=== PATIENT | female | born 1995 | race African-American/Black ===

== ENCOUNTER 2017-02-26 13:19 | Emergency (ER) | payer OTHER ==
[~2017-02-26] VITALS: Ht 157.5 cm; Wt 43.1 kg
--- NOTE | 2017-02-26 15:07 | ED GI/GU/ABDOMINAL COMPLAINT ---
History of Present Illness General Chief Complaint: General Adult Stated Complaint: NEEDS KING INSERTED Source: patient Exam Limitations: no limitations Vital Signs & Intake/Output Vital Signs & Intake/Output Vital Signs Date Time Temp Pulse Resp B/P B/P Pulse O2 O2 Flow FiO2 Mean Ox Delivery Rate 02/26 1418 Room Air Room Air 02/26 1332 99.3 74 18 124/74 99 Room Air Allergies Coded Allergies: ciprofloxacin (Mild, PER PT, DEVELOPED A FEVER, CANNOT TAKE CIPRO 02/26/17) linezolid (UNKNOWN 02/26/17) sulfamethoxazole (From BACTRIM) (UNKNOWN 02/26/17) trimethoprim (From BACTRIM) (UNKNOWN 02/26/17) Reconcile Medications Cephalexin (Keflex) 500 MG CAPSULE 1 CAP PO TID UTI Sulfamethoxazole/Trimethoprim (Bactrim Ds Tablet) 800 MG-160 MG TABLET 1 TAB PO BID UTI Triage Note: PT FRANCISCOA FROM [facility] FOR KING PLACEMENT, HX OF PARALYSIS, C5 FRACTURE IN JULY 2016. PT STATING STAFF ATTEMPTED TO PLACE KING IN FACILITY "BUT IT HURT TOO MUCH AND THEY JUST DON'T SEEM LIKE THEY KNOW WHAT THEY ARE DOING" PT STATING SHE CAN OCCASIONALLY FEEL BLADDER PRESSURE BUT NOT CONSISTENTLY. Triage Nurses Notes Reviewed? yes LMP (ages 10-50): unknown ? n Is pt currently ? No Onset: Abrupt Duration: day(s): (1), constant, continues in ED, getting worse Timing: recent history Quality/Severity: burning, fullness Severity Numbers: 7 Location: suprapubic Radiation: no radiation Prior Abdominal Problems: similar symptoms Past Sexual History: Unobtainable at this time No Modifying Factors: none Modifying Factors: Worsens With: palpation, urinating. Associated Symptoms: abdominal pain, dysuria HPI: 21-year-old female past medical history of paraplegia secondary to cervical spine fracture in July 2016 brought in by a bolus from extended care facility for placement of a King catheter. Patient was recently transferred to a new extended care facility that does not straight cath. Patient previously was getting straight cath several times per day. The staff at this new facility is unable to do this and is requesting that a King placed. Patient also states that she think she may have a urine infection. She reports burning in the area of her urethra and superpubic pressure. She has had recurrent UTIs in the past and feels like this is similar. No fever or back pain or abdominal pain.no other associated symptoms. She is not taking any medicine for this. No vaginal discharge or bleeding. (Chevy Jorge) Past History Travel History Traveled to [place] past 21 day No Medical History Any Pertinent Medical History? see below for history Neurological: POLYNEUROPATHY EENT: NONE Cardiovascular: NONE Respiratory: NONE Gastrointestinal: NONE Hepatic: NONE Renal: neurogenic bladder, urinary incontinence Musculoskeletal: fracture, PARAPLEGIA FRACTURE OF CERVICAL SPIN Psychiatric: NONE Endocrine: NONE Blood Disorders: NONE Cancer(s): NONE WEAVING MACHINE OPERATOR/Reproductive: NONE Surgical History Surgical History: none Psychosocial History What is your primary language Azerbaijani Tobacco Use: Never used ETOH Use: denies use Illicit Drug Use: denies illicit drug use Family History Hx Contributory? No (Chevy Jorge) Review of Systems Review of Systems Constitutional: Reports: no symptoms. EENTM: Reports: no symptoms. Respiratory: Reports: no symptoms. Cardiovascular: Reports: no symptoms. GI: Reports: no symptoms. Genitourinary: Reports: see HPI, dysuria, pain. Musculoskeletal: Reports: no symptoms. Skin: Reports: no symptoms. Neurological/Psychological: Reports: no symptoms. Hematologic/Endocrine: Reports: no symptoms. Immunologic/Allergic: Reports: no symptoms. All Other Systems: Reviewed and Negative (Chevy Jorge) Physical Exam Physical Exam General Appearance: well developed/nourished, no apparent distress, alert, awake Head: atraumatic, normal appearance Eyes: Bilateral: normal appearance, PERRL, EOMI. Ears, Nose, Throat, Mouth: hearing grossly normal, moist mucous membrane Neck: normal inspection, supple Respiratory: normal breath sounds, chest non-tender, no respiratory distress, lungs clear Cardiovascular: regular rate/rhythm, normal peripheral pulses Peripheral Pulses: 2+ radial (R), 2+ radial (L) Gastrointestinal: normal bowel sounds, soft, no organomegaly, tenderness (mild suprapubic) Back: normal inspection, normal range of motion, no CVA tenderness Extremities: patient is moving bilateral upper extremities equally. Lower extremities are paralyzed bilaterally Neurologic/Psych: awake, alert, oriented x 3, paraplegic at baseline Skin: intact, normal color, warm/dry Core Measures ACS in differential dx? No Sepsis Present: No Sepsis Focused Exam Completed? No (Chevy Jorge) Progress Differential Diagnosis: UTI/pyelo, urethritis, urinary retention, kidney stone, vulvovaginitis Plan of Care: Orders Procedure Date/time Status King, Insertion/Removal/Asses 02/26 1354 Active CULTURE,URINE 02/26 1354 Active URINALYSIS 02/26 1354 Complete Current Medications Sig/Gal Start time Last Medication Dose Stop Time Status Admin Cephalexin 500 MG ONCE ONE 02/26 1530 UNVr (Keflex) 02/26 1531 Trimethoprim/ 1 TAB ONCE ONE 02/26 1515 CAN Sulfamethoxazole 02/26 1516 (Bactrim DS) Laboratory Tests 02/26/17 1411: Urine Color YEL, Urine Clarity CLDY H, Urine pH 8.0, Ur Specific [place] 1.020, Urine Protein 100 H, Urine Ketones NEG, Urine Nitrite POS H, Urine Bilirubin NEG, Urine Urobilinogen 0.2, Ur Leukocyte Esterase LARGE H, Ur Microscopic SEDIMENT EXAMINED, Urine RBC 5-10 H, Urine WBC > 75 H, Ur Epithelial Cells RARE, Urine Crystals 1+ CA OX H, Urine Bacteria PACKD H, Urine Mucus RARE, Urine Hemoglobin TRACE-INTACT, Urine Glucose NEG Microbiology 02/26 1411 URINE ROUT: Urine Culture - RECD Patient seen and evaluated. She is afebrile nontoxic-appearing. Her abdomen is soft. No CVA tenderness. Bladder scan showed greater than 250 mL of urine in the bladder. A King catheter was placed patient reports feeling much better. Urine is showing signs of infection. She'll be treated with cephalexin. Advised her to follow-up with a urologist as soon as possible. Rest and plenty of fluids discussed return precautions in detail patient is nontoxic-appearing and agrees the plan. Initial ED EKG: none (Moustapha ROSS,Chevy) Departure Departure Disposition: HOME OR SELF CARE Condition: Stable Clinical Impression Primary Impression: Retention, urine Secondary Impressions: UTI (urinary tract infection) Qualifiers: Urinary tract infection type: acute cystitis Hematuria presence: without hematuria Qualified Code: N30.00 - Acute cystitis without hematuria Referrals: José Miguel HAMILTON,Karl Woodward (PCP/Family) Additional Instructions: Take antibiotics as directed for the full course. Follow-up with your urologist as soon as possible. Monitor symptoms return with any concerns. Departure Forms: Customer Survey General Discharge Information Prescriptions: Current Visit Scripts Sulfamethoxazole/Trimethoprim (Bactrim Ds Tablet) 1 TAB PO BID #20 TAB Cephalexin (Keflex) 1 CAP PO TID #30 CAP (Chevy Jorge) PA/FIELD HOCKEY COACH Co-Sign Statement Statement: ED Attending supervision documentation- [] I saw and evaluated the patient. I have also reviewed all the pertinent lab results and diagnostic results. I agree with the findings and the plan of care as documented in the PA's/FIELD HOCKEY COACH's documentation. [X] I have reviewed the ED Record and agree with the PA's/FIELD HOCKEY COACH's documentation. [] Additions or exceptions (if any) to the PAs/FIELD HOCKEY COACH's note and plan are summarized below: [] (Ralf Melendez DO)
[2017-02-26] MEDS ORDERED: BACTRIM DS TAB1 EACH PO (15:16)
[2017-02-26] MEDS ORDERED: KEFLEX500 M1 PO (15:25)
== END 2017-02-26 16:22 ==
LOC: ERH 13:19
DX: N39.0 Urinary tract infection, site not specified (principal); R33.9 Retention of urine, unspecified
CPT/HCPCS: 81001; 87086